=== PATIENT | male | born 1975 | race Caucasian/White ===

== ENCOUNTER 2020-08-25 08:12 | Inpatient (IN) | payer BC, OTHER ==
[~2020-08-25] VITALS: Ht 172.7 cm; Wt 77.6 kg
[2020-08-25] MEDS ORDERED: ONDANSETRON 2MG/ML, 2ML ONE (08:37)
[2020-08-25] MEDS ORDERED: HYDROmorphone 1 MG/ML, 1ML INJ ONE ×2 (08:37→11:45)
[2020-08-25] MEDS: HYDROmorphone 1 MG/ML, 1ML INJ IVPush PRN ×2 (08:43→11:47)
[2020-08-25] MEDS ORDERED: SODIUM CHLORIDE FLUSH 10ML SYR IVF ONE (09:00)
[2020-08-25] MEDS ORDERED: ONDANSETRON 2MG/ML, 2ML IVPush ONE (09:00)
[2020-08-25 09:18] LABS: BASOPHILS % (AUTO) 0 % (0-1); EOSINOPHILS % (AUTO) 1 % (1-7); LYMPHOCYTES % (AUTO) 16 % (22-44); MEAN CORPUSCULAR HEMOGLOBIN 32.8 pg (27.5-34.5); MEAN PLATELET VOLUME 7.5 fL (7.4-10.4); MONOCYTES % (AUTO) 7 % (2-9); NEUTROPHILS % (AUTO) 76 % (42-75); PLATELET COUNT 154 x10^3/uL (130-400); RED BLOOD COUNT 4.71 x10^6/uL (4.38-5.82); RED CELL DISTRIBUTION WIDTH 12.2 % (9.4-14.8)
[2020-08-25 09:28] LABS: ALBUMIN 3.8 g/dL (3.4-5.0); CALCIUM 9.3 mg/dL (8.5-10.1)
[2020-08-25 09:30] LABS: MD NO
[2020-08-25 09:31] LABS: ALANINE AMINOTRANSFERASE 46 U/L (12-78); ALKALINE PHOSPHATASE 61 U/L (45-117); BILIRUBIN,TOTAL 0.9 mg/dL (0.2-1.0); CREATININE 1.25 mg/dL (0.7-1.3); TOTAL PROTEIN 6.9 g/dL (6.4-8.2)
--- NOTE | 2020-08-25 09:36 | NUR ---
PT AMBULATES WELL TO BATHROOM AND BACK INTO BED INDEPENDENTLY. NAD NOTED AT THIS TIME. PT REPORTS PAIN REMAINS LOWERED FOLLOWING PAIN MED ADMINISTRATION.
[2020-08-25 09:42] LABS: ANION GAP 3 mmol/L (5-15); CHLORIDE 106 mmol/L (98-107)
--- NOTE | 2020-08-25 10:03 | NUR ---
PT TAKEN TO IMAGING. NAD NOTED.
--- NOTE | 2020-08-25 10:47 | NUR ---
AWAITING IMAGING RESULTS. NAD NOTED AT THIS TIME IN PT. HE IS SITTING UP IN BED USING CELL PHONE. SIDE RAILS UP, CALL LIGHT IN REACH.
[2020-08-25] MEDS ORDERED: OMNIPAQUE 350 MG/ML, 100ML BOTTLE ONE (11:01)
--- NOTE | 2020-08-25 11:33 | NUR ---
PT TAKEN TO CXR AT THIS TIME. NAD NOTED. TALKING PLEASANTLY WITH MANAGER WATER WASTEWATER.
--- NOTE | 2020-08-25 12:16 | NUR ---
DR JOHN AT BEDSIDE TO DISCUSS PNEUMO WITH PT AND PLAN FOR ADMISSION. PT VERBALIZES UNDERSTANDING. NAD NOTED AT THIS TIME. NRB IN PLACE. PO FLUIDS PROVIDED.
--- NOTE | 2020-08-25 12:21 | NUR ---
MEAL TRAY ORDERED FOR PT. PO FLUIDS PROVIDED.
[2020-08-25] MEDS ORDERED: ONDANSETRON 2MG/ML, 2ML IVPush PRN (12:30)
[2020-08-25] MEDS ORDERED: ACETAMINOPHEN 325 MG TABLET PO PRN (12:30)
[2020-08-25] MEDS ORDERED: ONDANSETRON ODT 4 MG PO PRN (12:30)
[2020-08-25] MEDS: SODIUM CHLORIDE 0.9% 1,000 ML IV SCH (16:19)
[2020-08-25] MEDS: ENOXAPARIN 40 MG/0.4 ML SQ SCH (16:19)
[2020-08-25] MEDS: OXYcodone IR 5MG TABLET PO PRN ×2 (17:36→23:30)
[2020-08-25] MEDS ORDERED: AMIT10TA PO (18:36)
[2020-08-25 18:37] VITALS: BP 115/84
[2020-08-25 22:13] VITALS: BP 114/80
[2020-08-25] MEDS: ACETAMINOPHEN 325 MG TABLET PO SCH (22:15)
[2020-08-25] MEDS: AMITRIPTYLINE 10 MG TABLET PO SCH (23:27)
[2020-08-26 02:00] VITALS: BP 111/72
[2020-08-26] MEDS ORDERED: DIPHENHYDRAMINE 25 MG CAPSULE PO ONE (03:00)
[2020-08-26] MEDS ORDERED: OXYcodone IR 5MG TABLET PO PRN (03:30)
[2020-08-26] MEDS: ACETAMINOPHEN 325 MG TABLET PO SCH ×6 (03:57→19:32)
[2020-08-26] MEDS: SODIUM CHLORIDE 0.9% 1,000 ML IV SCH ×3 (08:42→23:47)
[2020-08-26] MEDS: OXYcodone IR 5MG TABLET PO PRN ×4 (08:42→22:06)
[2020-08-26 11:03] VITALS: BP 115/75
[2020-08-26 14:20] VITALS: BP 114/73
[2020-08-26] MEDS: ENOXAPARIN 40 MG/0.4 ML SQ SCH (17:16)
[2020-08-26 19:48] VITALS: BP 117/73
[2020-08-26] MEDS ORDERED: SENNOSIDES 8.6 MG TABLET PO SCH (21:00)
[2020-08-26] MEDS: AMITRIPTYLINE 10 MG TABLET PO SCH (21:31)
[2020-08-27] MEDS: ACETAMINOPHEN 325 MG TABLET PO SCH ×3 (01:23→13:30)
[2020-08-27 02:05] VITALS: BP 115/77
[2020-08-27] MEDS: OXYcodone IR 5MG TABLET PO PRN ×4 (02:05→15:24)
[2020-08-27 08:08] VITALS: BP 144/83
[2020-08-27] MEDS ORDERED: SIMETHICONE 80 MG CHEW TAB PO PRN (10:00)
[2020-08-27] MEDS ORDERED: MORPHINE SULFATE 4 MG/ML, 1ML IVPush PRN (12:30)
[2020-08-27 12:54] VITALS: BP 116/77
[2020-08-27 13:45] LABS: BASOPHILS % (AUTO) 1 % (0-1); EOSINOPHILS % (AUTO) 1 % (1-7); LYMPHOCYTES % (AUTO) 18 % (22-44); MEAN CORPUSCULAR HEMOGLOBIN 32.4 pg (27.5-34.5); MEAN CORPUSCULAR HGB CONC 33.9 g/dL (33.2-36.2); MEAN PLATELET VOLUME 7.4 fL (7.4-10.4); MONOCYTES % (AUTO) 8 % (2-9); NEUTROPHILS % (AUTO) 73 % (42-75); PLATELET COUNT 167 x10^3/uL (130-400); RED BLOOD COUNT 4.54 x10^6/uL (4.38-5.82); RED CELL DISTRIBUTION WIDTH 12.1 % (9.4-14.8)
[2020-08-27 13:46] LABS: MD NO
[2020-08-27] MEDS ORDERED: OMNIPAQUE 350 MG/ML, 100ML BOTTLE ONE (14:08)
[2020-08-27 14:17] LABS: ANION GAP 6 mmol/L (5-15); CHLORIDE 102 mmol/L (98-107)
[2020-08-27 14:18] LABS: ALANINE AMINOTRANSFERASE 41 U/L (12-78); ALBUMIN 3.3 g/dL (3.4-5.0); ALKALINE PHOSPHATASE 67 U/L (45-117); BILIRUBIN,TOTAL 1.2 mg/dL (0.2-1.0); CREATININE 0.83 mg/dL (0.7-1.3); TOTAL PROTEIN 6.5 g/dL (6.4-8.2)
[2020-08-27] MEDS ORDERED: ACET325T26 PO (15:00)
[2020-08-27] MEDS ORDERED: OXYC5TAB3 PO ×2 (15:00→20:42)
[2020-08-27] MEDS ORDERED: ONDA4TAB13 PO (15:00)
[2020-08-27] MEDS ORDERED: POLY17PO5 PO (15:00)
== END 2020-08-27 18:33 | disposition home or self-care (01) | DRG 200 ==
LOC: ED 09:03 → EDIP 12:02 → 3WST 16:13
PROVIDERS: ADMIT Internal Medicine; ATTEND Internal Medicine
DX: S27.0XXA Traumatic pneumothorax, initial encounter (principal); S22.42XA Multiple fractures of ribs, left side, initial encounter for closed fracture; J98.11 Atelectasis; E86.0 Dehydration; F12.90 Cannabis use, unspecified, uncomplicated; G47.00 Insomnia, unspecified; Z91.012 Allergy to eggs; Z91.013 Allergy to seafood; K59.00 Constipation, unspecified; N28.9 Disorder of kidney and ureter, unspecified; V19.9XXA Pedal cyclist (driver) (passenger) injured in unspecified traffic accident, initial encounter; Y93.55 Activity, bike riding; Z82.5 Family history of asthma and other chronic lower respiratory diseases; Y92.89 Other specified places as the place of occurrence of the external cause; Y99.8 Other external cause status
CPT/HCPCS: 36415; 70450; 71045; 71046; 72125; 74177; 80053; 83690; 85025; 96374; 96375; 96376; 99285; G0378; J1170; J1650; J2405; Q9967; J2270; J7030; Q0163